=== PATIENT | female | born 1960 | race African-American/Black ===

== ENCOUNTER → 2016-11-09 | Outpatient (CLI) | payer OTHER ==
--- NOTE | 2016-11-09 16:34 | KCIC ---
KNEE LEFT 3V History: Left knee pain for 3 weeks, no known injury Comparison: None. Findings: 3 views left knee are submitted. No acute fracture or dislocation is identified. There is no significant joint effusion. Mineralization is appropriate for age. Joint spaces are overall adequate. Impression: 1. No significant osseous abnormality is identified. Electronically signed by: Greg Alexis MD (11/09/2016 4:30 PM) [id number]
== END | disposition home or self-care (01) ==
LOC: KCIC 15:58
PROVIDERS: ATTEND Family Medicine
DX: M25.562 Pain in left knee (principal)
CPT/HCPCS: 73562